=== PATIENT | male | born 1980 | race African-American/Black ===

== ENCOUNTER 2017-08-11 01:15 | Emergency (ER) | payer MEDICAID, OTHER ==
[~2017-08-11 01:15] MED LIST: CEPH500C3 PO; ULTR50TA OR; Z.0.NO CURRENT MEDS
[2017-08-11 01:17] VITALS: BP 193/103; PULSE 97; RESP 16; TEMP 100.4; O2SAT 96
[2017-08-11] MEDS ORDERED: RESP: LIDOCAINE HCL 4% PF 5 ML NEB NEB ONE (01:30)
[2017-08-11] MEDS ORDERED: IBUPROFEN 600 MG TAB PO ONE (01:30)
[2017-08-11] MEDS ORDERED: ASPI-516 CHEW (01:33)
[2017-08-11] MEDS ORDERED: TETRACAINE 0.5% OPTH SOLN 4 ML BTL LEFT EYE ONE (01:45)
[2017-08-11] MEDS ORDERED: OSELTAMIVIR PHOSPHATE 75 MG CAP PO ONE (02:15)
[2017-08-11] MEDS ORDERED: OSEL75 PO (02:29)
--- NOTE | 2017-08-11 02:29 | PD ---
HPI . Chest pain Chief Complaint: Chest Pain Time Seen by Provider: 01:23 Travel History International Travel<30 days: No Contact w/Intl Traveler<30days: No Traveled to known affect area: No History of Present Illness HPI 36-year-old male complains of having upper respiratory symptoms including runny nose, slight cough, notes chest pain across his entire chest anteriorly worse with deep breath and coughing over the past 2 days. Patient feels feverish but is has not quantified any temperature. Patient also notes that he has a possible insect in his left ear from 2 days ago that he noticed while at work. Patient has decreased auditory acuity of left ear. [facility] Past Medical History Narrative Medical Past medical history reviewed Medical History: Denies Significant Hx Diminished Hearing: No Tetanus Vaccination: < 5 Years ?: Not Past Surgical History Surgical History: No Previous Surgery Social History Alcohol Use: Yes (OCC) Tobacco Use: Yes (1 PPD) Substance Use: Yes (OCCASSIONAL MARIJUANA) Allergies-Medications (Allergen,Severity, Reaction): Coded Allergies: No Known Allergies (Verified Adverse Reaction, Unknown, 08/11/17) Reported Meds & Prescriptions Reported Meds & Active Scripts Active Reported Aspirin 81 Mg Chew 81 Mg CHEW DAILY Narrative Medication Allergies and medications reviewed Review of Systems Except as stated in HPI: all other systems reviewed are Neg General / Constitutional: Positive: Fever, No: Chills Eyes: No: Visual changes HENT: No: Headaches Cardiovascular: Positive: Chest Pain or Discomfort, No: Palpitations, Irregular Rhythm, Tachycardia, Diaphoresis Respiratory: Positive: Cough, No: Shortness of Breath, Wheezing, Sneezing, Orthopnea, Hemoptysis, Stridor, Night Sweats, Pleuritic Pain Gastrointestinal: No: Abdominal Pain Genitourinary: No: Dysuria Musculoskeletal: No: Pain Skin: No Rash Neurologic: No: Weakness Psychiatric: No: Depression Endocrine: No: Polydipsia Hematologic/Lymphatic: No: Easy Bruising Physical Exam Narrative GENERAL: Awake and alert oriented 3 no acute distress vital signs afebrile normal stable SKIN: . Patient slightly diaphoretic HEAD: Atraumatic. Normocephalic. EYES: Pupils equal and round. No scleral icterus. No injection or drainage. ENT: No nasal bleeding or discharge. Mucous membranes pink and moist. Right TM clear, left TM insect and canal, probable old ruptured eardrum secondary to insect burrowing NECK: Trachea midline. No JVD. Supple full range of motion CARDIOVASCULAR: Regular rate and rhythm. S1-S2 no murmurs rubs or gallops RESPIRATORY: No accessory muscle use. Clear to auscultation. Breath sounds equal bilaterally. GASTROINTESTINAL: Abdomen soft, non-tender, nondistended. Hepatic and splenic margins not palpable. MUSCULOSKELETAL: Extremities without clubbing, cyanosis, or edema. No obvious deformities. NEUROLOGICAL: Awake and alert. No obvious gross focal deficit PSYCHIATRIC: Appropriate mood and affect; insight and judgment normal. Data Data Last Documented VS Vital Signs Date Time Temp Pulse Resp B/P (MAP) Pulse Ox O2 Delivery O2 Flow Rate FiO2 08/11/17 01:17 100.4 97 16 193/103 (133) 96 Orders Orders Ibuprofen (Motrin) (08/11/17 01:30) Lidocaine Pf 4% Neb (Lidocaine Pf 4% Neb (08/11/17 01:30) Influenzae A/B Antigen (08/11/17 01:28) Electrocardiogram (08/11/17 ) Tetracaine 0.5% Opth Soln (Tetracaine 0. (08/11/17 01:45) Oseltamivir (Tamiflu) (08/11/17 02:15) MDM Medical Decision Making Medical Screen Exam Complete: Yes Emergency Medical Condition: Yes Medical Record Reviewed: Yes Differential Diagnosis Foreign body left ear, influenza Narrative Course Influenza test positive. Patient started on Tamiflu in ED. Procedure: Attempted removal of foreign body left ear. Secondary to the depth of the insect probably through the patient's eardrum, as well as inadequate instruments, no small alligator forceps available, difficult to remove. Recommend follow-up with ENT for removal Diagnosis Primary Impression: Foreign body in left ear Qualified Codes: T16.2XXA - Foreign body in left ear, initial encounter Additional Impressions: Ruptured tympanic membrane Qualified Codes: H72.92 - Unspecified perforation of tympanic membrane, left ear Influenza Referrals: Garland Sanchez MD Patient Instructions: Ear Foreign Body (ED), General Instructions, H1N1 Influenza (ED) Additional Instructions: Follow-up with ENT Dr. Sanchez in the morning for removal of foreign body/ insect left ear. Tamiflu 75 mg twice daily for the next 5 days. Tylenol/ Motrin for aches/pain/fever. Drink plenty of fluids. Follow-up with your doctor/[facility] clinic. Return for worsening Scripts Oseltamivir (Tamiflu) 75 Mg Cap 75 MG PO BID for Mgmt Viral Infection, #10 CAP 0 Refills Prov: Anant Solis MD 08/11/17 Disposition: 01 DISCHARGE HOME Condition: Stable Anant Solis MD Aug 11, 2017 02:29
--- NOTE | 2017-08-11 11:27 | EKG ---
Date Performed: 08/11/2017 Time Performed: 01:36:49 PTAGE: 36 years EKG: Sinus rhythm POSSIBLE RIGHT VENTRICULAR CONDUCTION DELAY BORDERLINE ECG NO PREVIOUS TRACING DOCTOR: Lawrence Alston Interpretating Date/Time 08/11/2017 11:24:10
== END 2017-08-11 02:58 | disposition home or self-care (01) ==
LOC: NEPE 01:15
DX: S00.452A Superficial foreign body of left ear, initial encounter (principal); H72.92 Unspecified perforation of tympanic membrane, left ear; J10.89 Influenza due to other identified influenza virus with other manifestations; R07.9 Chest pain, unspecified; R50.9 Fever, unspecified; R05 Cough; X58.XXXA Exposure to other specified factors, initial encounter; Y93.9 Activity, unspecified; Y99.0 Civilian activity done for income or pay; R94.31 Abnormal electrocardiogram [ECG] [EKG]; Z72.0 Tobacco use
CPT/HCPCS: 87804; 93005; 94664; 99283